=== PATIENT | female | born 1995 | race Hispanic/Latino ===

== ENCOUNTER 2019-03-07 21:56 | Emergency (ER) | payer OTHER ==
[~2019-03-07] VITALS: Ht 157.5 cm; Wt 77.1 kg
--- OUTSIDE RECORDS SUMMARY | 2019-03-07 21:58 | XMS REPORT | Clinical Summary ---
Author Author [facility] Organization [facility] Address Unknown Phone Unavailable Care Team Providers Care Games Dealer Name Role Phone Asked, No Pcp PCP Unavailable Allergies No Known Allergies Medications End Date Status Medication Sig Dispensed Refills Start Date Active levonorgestrel (MIRENA) 1 each by 0 20 mcg/24 hr (5 years) intrauterine IUD route once. 07/2017 Active Problems Not on file Family History Medical History Relation Name Comments Hypothyroidism Father Diabetes Maternal Grandfather Diabetes Maternal Grandmother Colon cancer Mother Stomach cancer Mother Relation Name Status Comments Father Maternal Grandfather Maternal Grandmother Mother testing for hereditary cancer syndromes negative Social History Date Tobacco Use Types Packs/Day Years Used Never Smoker Smokeless Tobacco: Never Used Alcohol Use Drinks/Week oz/Week Comments No Sex Assigned at Date Recorded Not on file Industry Job Start Date Occupation Not on file Not on file Not on file Travel End Travel History Travel Start No recent travel history available. Last Filed Vital Signs Not on file Plan of Treatment Health Maintenance Due Date Last Done Comments CHLAMYDIA SCREENING 07/13/2018 07/13/2017 INFLUENZA VACCINE 03/02/2019 Results Not on fileafter 03/06/2018 Insurance Type Payer Benefit Subscriber ID Effective Phone Address Plan / Dates Group PPO BCBS BCBS xxxxxxxxxxxx 2017-[id number] CHOICE resent PPO/MARY L EMPL PPO Advance Directives Patient has advance care planning documents on file. For more information, [employer] [employer] contact: Lucio Darby [address] [place] [id number]
[2019-03-07] MEDS ORDERED: IBUPROFEN 600 MG TAB PO STA (22:58)
[2019-03-07] MEDS ORDERED: IBUPROFEN 200 MG TAB ONE (23:10)
[2019-03-07] MEDS ORDERED: IBUPROFEN400 MG PO (23:20)
[2019-03-07] MEDS ORDERED: METHOCARBAMOL750 MG PO (23:21)
[2019-03-07] MEDS ORDERED: ULTRAM50 MG PO (23:23)
[2019-03-07 23:36] VITALS: BP 115/71
== END 2019-03-07 23:39 | disposition home or self-care (01) ==
LOC: FSED 21:56
DX: S16.1XXA Strain of muscle, fascia and tendon at neck level, initial encounter (principal); V43.62XA Car passenger injured in collision with other type car in traffic accident, initial encounter; Y92.411 Interstate highway as the place of occurrence of the external cause
CPT/HCPCS: 99283